=== PATIENT | male | born 1990 | race Two or more races ===

== ENCOUNTER 2022-03-06 04:36 | Emergency (ER) | payer MEDICAID ==
[~2022-03-06] VITALS: Ht 170.2 cm; Wt 210.0 kg
[2022-03-06 05:42] LABS: Urine Bacteria NONE SEEN /hpf (None Seen); Urine Blood Negative /uL (Negative); Urine Mucus FEW (None Seen); Urine Specific Gravity 1.025 (1.001-1.035); Urine WBC 1 /hpf (0 - 3)
[2022-03-06 07:21] VITALS: BP 137/104
[2022-03-06] MEDS ORDERED: CEPH-510 PO (07:23)
== END 2022-03-06 07:24 | disposition home or self-care (01) ==
LOC: ER 04:42
DX: R35.0 Frequency of micturition (principal); Z79.899 Other long term (current) drug therapy
CPT/HCPCS: 81001; 82962; 87086